=== PATIENT | female | born 1980 | race Caucasian/White ===

== ENCOUNTER 2018-05-01 16:12 | Inpatient (IN) | payer OTHER ==
[~2018-05-01] VITALS: Ht 160 cm; Wt 71.4 kg
[2018-05-01] MEDS ORDERED: LORA-259 PO (16:22)
[2018-05-01] MEDS ORDERED: METF500T6 PO (16:22)
[2018-05-01] MEDS ORDERED: ONDANSETRON 4 MG/2 ML VIAL IV ONE (16:30)
[2018-05-01] MEDS ORDERED: HYDROMORPHONE 1 MG/1 ML DISP.SYRIN IV ONE (16:30)
[2018-05-01] MEDS ORDERED: IV NORMAL SALINE 1000 ML BAG IV ONE (16:30)
[2018-05-01 16:46] LABS: BASOPHILS # (AUTO) 0.1 K/uL (0.0-8.0); BASOPHILS % (AUTO) 1.4 % (0.0-2.0); EOSINOPHILS # (AUTO) 0.4 K/uL (0.0-0.7); EOSINOPHILS % (AUTO) 4.4 % (0.0-7.0); HEMATOCRIT 43.3 % (31.2-41.9); HEMOGLOBIN 15.1 g/dL (10.9-14.3); LYMPHOCYTES # (AUTO) 2.3 K/uL (20.0-40.0); LYMPHOCYTES % (AUTO) 24.6 % (20.5-51.5); MEAN CORPUSCULAR HEMOGLOBIN 31.8 uug (24.7-32.8); MEAN CORPUSCULAR HGB CONC 35 g/dL (32.3-35.6); MEAN CORPUSCULAR VOLUME 91.3 fL (75.5-95.3); MONOCYTES # (AUTO) 0.5 K/uL (2.0-10.0); MONOCYTES % (AUTO) 5.9 % (0.0-11.0); NEUTROPHILS # (AUTO) 5.9 K/uL (1.8-8.9); NEUTROPHILS % (AUTO) 63.7 % (38.5-71.5); PLATELET COUNT (AUTO) 272 K/uL (179-408); RED BLOOD CELL COUNT(AUTO) 4.74 MIL/uL (3.63-4.92); WHITE BLOOD COUNT (AUTO) 9.3 K/uL (3.8-11.8)
[2018-05-01 16:51] LABS: POTASSIUM 4.1 mmol/L (3.5-5.1)
[2018-05-01] MEDS ORDERED: HYDROMORPHONE 2 MG/1 ML DISP.SYRIN ONE (16:53)
[2018-05-01] MEDS ORDERED: ONDANSETRON 4 MG/2 ML VIAL ONE (16:53)
[2018-05-01 16:57] LABS: BILIRUBIN,DIRECT 0.1 mg/dL (0.0-0.2); BILIRUBIN,TOTAL 0.6 mg/dL (0.2-1.0)
[2018-05-01] MEDS ORDERED: INSULIN REGULAR, HUMAN 1,000 UNITS/10 ML VIAL IV ONE (17:00)
[2018-05-01] MEDS ORDERED: INSULIN REGULAR, HUMAN 300 UNIT/3 ML VIAL ONE (17:03)
--- NOTE | 2018-05-01 17:06 | NUR ---
PATIENT WAS BIB [facility] FOR C/O COUGH, PAIN, NAUSEA AND NOT FEELING WELL IN GENERAL. BS WAS 384.. DR BALLARD AWARE. MEDICATION GIVEN ORDERED. 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 LABS PENDING....
--- NOTE | 2018-05-01 17:57 | NUR ---
PATIENT STATES PAIN AND NAUSEA HAVE DIMINISHED. PT AWARE OFP ENDING ADMISSION. REPORT GIVEN TO CLAY CERON.
[2018-05-01] MEDS ORDERED: DEXTROSE 50% 50 ML DISP.SYRIN IV PRN (18:00)
[2018-05-01] MEDS ORDERED: HYDROCODONE/APAP 5-325MG TABLET PO PRN (18:00)
[2018-05-01] MEDS ORDERED: MORPHINE SULFATE 2 MG/1 ML DISP.SYRIN IV PRN (18:00)
[2018-05-01] MEDS ORDERED: MAGNESIUM HYDROXIDE 30 ML LIQUID UDC PO PRN (18:00)
[2018-05-01] MEDS ORDERED: Z GUARD REMEDY PASTE 57 GM TUBE TOP PRN (18:00)
[2018-05-01] MEDS ORDERED: ONDANSETRON 4 MG/2 ML VIAL IV PRN (18:00)
[2018-05-01] MEDS ORDERED: ACETAMINOPHEN 325 MG TABLET PO PRN (18:00)
--- NOTE | 2018-05-01 18:10 | NUR ---
BLOOD GLUCOSE 81. DR BALLARD NOTIFIED. I GAVE HER 4 OZ OF APPLE JUICE. PT TO GO TO CT SCAN NOW. PATIENT DENIES FEELING DIZZY OR HAVING LOW BLOOD SUGAR.
[2018-05-01] MEDS: BLOOD SUGAR DIAGNOSTIC 1 EACH STRIP VI SCH ×2 (18:12→20:36)
[2018-05-01] MEDS ORDERED: MORPHINE SULFATE 4 MG/1 ML DISP.SYRIN IV PRN (18:15)
[2018-05-01 18:26] VITALS: BP 95/52
--- NOTE | 2018-05-01 18:30 | NUR ---
PT ARRIVED ON TO UNIT VIA WHEEL CHAIR. AOX4, PAIN 01/12, STATING, " I JUST WANT TO EAT!", NO SIGNS OF RESPIRATORY DISTRESS. CONTINUE TO MONITOR PT.
[2018-05-01 19:00] VITALS: BP 107/48
--- NOTE | 2018-05-01 19:30 | NUR ---
RECEIVED PT'S A/A/O X4;NEWLY ADMISSION FROM ER TODAY IN THE EVENING W/DX OF ABDOMINAL PAIN,HYPERGLYCEMIA,PT'S NPO PER MD'S ORDER;C/O HUNGRY AT THIS TIME.PT'S FRIENDS AT THE BEDSIDE,WILL GIVE IVF:NSS @75 ML/HR ORDER.UNIT ORIENTATION TO PT;SHE VERBALIZED UNDERSTANDING.M/S STATUS NOTED.KEPT COMFORT.CALL-LIGHT WITHIN REACH.
[2018-05-01] MEDS: IV NS 1000 ML 1,000 ML IV PRN (20:25)
[2018-05-01] MEDS: INSULIN REGULAR, HUMAN 300 UNIT/3 ML VIAL SQ PRN (20:39)
--- NOTE | 2018-05-01 20:45 | NUR ---
CALLED [facility]'S DR[employer] SAFETY COORDINATOR TONIGHT;UPDATED ABOUT PT'S CONDITION AND NOTIFIED HIM THAT PT C/OHUNGRY AND DENIED OF PAIN.NEW ORDER'S GIVEN AND UPDATED THE PLAN OF CARE TO PT;SHE VERBALIZED UNDERSTANDING AND COOPERATIVE.KEPT COMFORT.CALL-LIGHT WITHIN REACH.
[2018-05-01] MEDS ORDERED: LORAZEPAM 1 MG TABLET PO PRN (21:00)
[2018-05-01 23:33] VITALS: BP 81/44
--- NOTE | 2018-05-02 01:10 | NUR ---
pt woke up and went to bathroom,started coughing and vomiting with some saliva,stated that"I had anxiety attack,can't breath";assisted pt to get out of the room as request,Zofran 4 mg IVP x1 at this time,pt felt better and gave Ativan 1 mg PO x1 as request,stayed with pt until she's calm,left the door open and turned on the light as request.kept call-light within reach.continued monitoring to pt.
[2018-05-02 01:50] LABS: *BILIRUBIN,URIN 1+ (NEGATIVE); *BLOOD, URINE 3+ (NEGATIVE); *CLARITY,URINE SLIGHTLY CLOUDY (CLEAR); *COLOR,URINE DARK YELLOW (YELLOW); *KETONES,URINE TRACE (NEGATIVE); *PROTEIN,URINE 2+ (NEGATIVE); LEUKOCYTE ESTERASE ,URINE NEGATIVE (NEGATIVE); NITRITE, URINE NEGATIVE (NEGATIVE); PH,URINE 5.5 (5.0-8.0); UGLUCOSE 3+ (NEGATIVE)
[2018-05-02 01:54] LABS: BACTERIA,URINE NONE SEEN /HPF (NONE SEEN); SQUAMOUS EPITHELIAL CELL,UR MODERATE /HPF (NONE SEEN)
[2018-05-02 02:00] LABS: *AMPHETAMINE, URINE NEGATIVE (NEGATIVE); *BARBITURATE, URINE NEGATIVE (NEGATIVE); *CANNABINOID, URINE NEGATIVE (NEGATIVE); *COCCAINE, URINE NEGATIVE (NEGATIVE); *OPIATE, URINE POSITIVE (NEGATIVE); *PHENCYCLIDINE SCREEN,URINE NEGATIVE (NEGATIVE)
--- NOTE | 2018-05-02 02:00 | NUR ---
pt slept well,unlabored breathing noted.maintained IVF as order.kept call-light within reach.
[2018-05-02 03:36] VITALS: BP 97/38
[2018-05-02 05:50] LABS: BASOPHILS # (AUTO) 0.1 K/uL (0.0-8.0); BASOPHILS % (AUTO) 1.2 % (0.0-2.0); EOSINOPHILS # (AUTO) 0.6 K/uL (0.0-0.7); EOSINOPHILS % (AUTO) 7.5 % (0.0-7.0); HEMATOCRIT 39.6 % (31.2-41.9); HEMOGLOBIN 13.9 g/dL (10.9-14.3); LYMPHOCYTES # (AUTO) 3.5 K/uL (20.0-40.0); LYMPHOCYTES % (AUTO) 40.5 % (20.5-51.5); MEAN CORPUSCULAR HGB CONC 35 g/dL (32.3-35.6); MEAN CORPUSCULAR VOLUME 90.9 fL (75.5-95.3); MONOCYTES # (AUTO) 0.6 K/uL (2.0-10.0); MONOCYTES % (AUTO) 6.9 % (0.0-11.0); NEUTROPHILS # (AUTO) 3.8 K/uL (1.8-8.9); NEUTROPHILS % (AUTO) 43.9 % (38.5-71.5); PLATELET COUNT (AUTO) 234 K/uL (179-408); RED BLOOD CELL COUNT(AUTO) 4.35 MIL/uL (3.63-4.92); WHITE BLOOD COUNT (AUTO) 8.5 K/uL (3.8-11.8)
[2018-05-02 06:01] LABS: CREATININE 0.8 mg/dL (0.6-1.3); MAGNESIUM 1.7 mg/dL (1.8-2.4); PHOSPHOROUS 3.1 mg/dL (2.5-4.9); POTASSIUM 4.1 mmol/L (3.5-5.1)
[2018-05-02 06:14] LABS: THYROID STIMULATING HORMONE 1.203 mIU/mL (0.358-3.740)
[2018-05-02] MEDS: BLOOD SUGAR DIAGNOSTIC 1 EACH STRIP VI SCH ×4 (06:41→22:18)
--- NOTE | 2018-05-02 06:50 | NUR ---
Pt's comfortable on bed;denied of pain or any discomfort.no distress noted in the shift.pt stated that"I felt totally better".
[2018-05-02] MEDS: IV NS 1000 ML 1,000 ML IV PRN (09:17)
[2018-05-02] MEDS: INSULIN REGULAR, HUMAN 300 UNIT/3 ML VIAL SQ PRN ×3 (09:17→22:19)
[2018-05-02 11:49] VITALS: BP 94/48
[2018-05-02] MEDS: MAGNESIUM SULFATE/D5W 100 ML IV SCH ×2 (12:34→13:45)
[2018-05-02 16:04] VITALS: BP 105/60
[2018-05-02] MEDS ORDERED: IV NORMAL SALINE 100 ML ONE (17:34)
[2018-05-02] MEDS ORDERED: SWABABLE VALVE TRANSFER SET EA MC ONE (17:34)
[2018-05-02] MEDS ORDERED: NORMAL SALINE FLUSH 10 ML DISP.SYRIN ONE (17:34)
[2018-05-02] MEDS ORDERED: IOHEXOL 300MG/ML 100 ML INFUS..BTL ONE (17:34)
[2018-05-02 19:00] VITALS: BP 153/51
--- NOTE | 2018-05-02 19:10 | NUR ---
Received patient in bed, awake, talking on the phone. Denies any pain/discomforts, N/V. Continue care as planned.
[2018-05-02] MEDS ORDERED: ALBU18HF2 INH (21:28)
[2018-05-03] MEDS: IV NS 1000 ML 1,000 ML IV PRN (02:24)
[2018-05-03 04:00] VITALS: BP 113/56
--- NOTE | 2018-05-03 05:35 | NUR ---
Shift end report: VS stable. BS monitored with sliding scale coverage. Denies any s/s of hypo/hyperglycemia. No falls/injury reported. No pain/discomforts presented. All needs attended and met. Continue current plan of care.
[2018-05-03 06:08] LABS: CREATININE 0.8 mg/dL (0.6-1.3); MAGNESIUM 1.9 mg/dL (1.8-2.4)
[2018-05-03] MEDS: BLOOD SUGAR DIAGNOSTIC 1 EACH STRIP VI SCH (06:09)
[2018-05-03] MEDS ORDERED: NICOTINE 14 MG/24HR PATCH TD SCH (09:00)
[2018-05-03] MEDS: INSULIN REGULAR, HUMAN 300 UNIT/3 ML VIAL SQ PRN (09:13)
[2018-05-03 11:30] VITALS: BP 104/40
--- NOTE | 2018-05-03 11:58 | NUR ---
PATIENT WAS GIVEN DISCHARGE INSTRUCTIONS, PRESCRIPTION PROVIDED, AND IV REMOVED. FOLLOWUP APPOINTMENT MADE WITH DR SUSAN SOMMERS 3RD 4PM. [phone].
== END 2018-05-03 12:00 | disposition home or self-care (01) | DRG 249 ==
LOC: ER 16:16 → TELE 17:56 → MED 21:00
PROVIDERS: ADMIT Nurse Practitioner Acute Care; ATTEND Nurse Practitioner Acute Care
DX: A08.4 Viral intestinal infection, unspecified (principal); E11.65 Type 2 diabetes mellitus with hyperglycemia; E87.1 Hypo-osmolality and hyponatremia; E86.1 Hypovolemia; Z79.84 Long term (current) use of oral hypoglycemic drugs; F17.210 Nicotine dependence, cigarettes, uncomplicated; F41.9 Anxiety disorder, unspecified; G89.29 Other chronic pain; V89.2XXS Person injured in unspecified motor-vehicle accident, traffic, sequela; Y92.410 Unspecified street and highway as the place of occurrence of the external cause; Z83.3 Family history of diabetes mellitus; Z80.52 Family history of malignant neoplasm of bladder; D18.03 Hemangioma of intra-abdominal structures; N20.0 Calculus of kidney; M54.5 Low back pain
CPT/HCPCS: 36415; 70030-TC; 71045; 74160; 80307; 83690; 83735; 84100; 84443; 84703; 85025; 87077; 87086; 93005; A4663; J1170; J1815; J2270; J2405; J3475; J3490; J7030; J7040; Q9967